=== PATIENT | female | born 1975 | race Caucasian/White ===

== ENCOUNTER 2023-07-22 15:18 | Outpatient (REF) | payer OTHER, SELFPAY ==
[2023-07-22 16:05] LABS: TSH (W/Ref FT4) 0.73 uIU/mL (0.36-3.74)
== END 2023-07-22 15:19 | disposition home or self-care (01) ==
LOC: NCHCN 15:18
PROVIDERS: PCP Family Medicine; Visit Provider Family Medicine
DX: E66.9 Obesity, unspecified (principal)
CPT/HCPCS: 84443